=== PATIENT | male | born 1960 | race Caucasian/White ===

== ENCOUNTER 2017-08-09 20:23 | Inpatient (IN) | payer OTHER ==
[~2017-08-09] VITALS: Ht 185.4 cm; Wt 88.0 kg
--- NOTE | ~2017-08-09 | 2DMMODE ---
[facility] [address] [place] [address] 2 D/M-MODE ECHOCARDIOGRAM Name: LARON LIMA Room #: 354-P ADM IN .R.#: [id number] Admission: 08/09/17 Attend Phys: Soren Huang MD Discharge: Date of : 62 Date of Service: 08/11/17 1552 Report #: [id number] THIS REPORT FOR: //name// APPROVED REPORT Study performed: 08/11/2017 14:27:08 EXAM: Comprehensive 2D, Doppler, and color-flow Echocardiogram Patient Location: Bedside Room #: 354 Status: routine BSA: 2.10 HR: 75 bpm BP: 108/63 mmHg Rhythm: NSR Other Information Study Quality: Good Indications Dyspnea Cardiomegaly 2D Dimensions RVDd: 37.17 mm IVSd: 10.99 (7-11mm) LVOT Diam: 22.62 (18-24mm) LVDd: 47.22 mm PWd: 9.63 (7-11mm) Ascending Ao: 31.55 (22-36mm) Aortic Root: 31.11 mm IVC: 22.00 mm Volumes Left Atrial Volume (Systole) Single Plane 4CH: 39.38 mL Single Plane 2CH: 30.10 mL LA ESV Index: 19.00 mL/m2 Aortic Valve AoV Peak Gilbert.: 1.28 m/s AO Peak Gr.: 6.55 mmHg LVOT Max P.67 mmHg LVOT Max V: 1.08 m/s RUFINO Vmax: 3.39 cm2 Mitral Valve E/A Ratio: 0.8 MV Decel. Time: 205.23 ms MV E Max Gilbert.: 0.47 m/s [facility] [address] [place] [address] 2 D/M-MODE ECHOCARDIOGRAM Name: MADDIE SOLORIOLARON A Room #: 354-P [facility] IN [facility].#: [id number] Admission: 08/09/17 Attend Phys: Soren Huang MD Discharge: Date of : 62 Date of Service: 08/11/17 1552 Report #: [id number] A Gilbert.: 0.62 m/s MV PHT: 59.52 ms IVRT: 64.59 ms Pulmonary Valve PV Peak Gilbert.: 0.93 m/s PV Peak Gr.: 3.48 mmHg Tricuspid Valve TR Peak Gilbert.: 2.65 m/s RAP Estimate: 10.00 mmHg TR Peak Gr.: 28.02 mmHg PA Pressure: 38.00 mmHg Left Ventricle The left ventricle is normal size. There is normal left ventricular wall thickness. Left ventricular systolic function is mildly decreased. LVEF is 50%. Grade I - abnormal relaxation pattern. Right Ventricle Right ventricle is at the upper limits of normal. Right ventricle is mildly hypokinetic. Atria The left atrium size is normal. Right atrium is borderline dilated. Aortic Valve The aortic valve is normal in structure. No aortic regurgitation is present. There is no aortic valvular stenosis. Mitral Valve The mitral valve is normal in structure. Mild mitral regurgitation. No evidence of mitral valve stenosis. Tricuspid Valve The tricuspid valve is normal in structure. Mild tricuspid regurgitation. Estimated PAP 38 mmHg. Pulmonic Valve The pulmonary valve is normal in structure. Trace pulmonic regurgitation. Great Vessels The aortic root is normal in size. The ascending aorta is normal in size. IVC is dilated and collapses >50% with inspiration. [facility] [address] [place] [address] 2 D/M-MODE ECHOCARDIOGRAM Name: LARON LIMA Room #: 354-P [facility] IN .R.#: [id number] Admission: 08/09/17 Attend Phys: Soren Huang MD Discharge: Date of : 62 Date of Service: 08/11/17 1552 Report #: [id number] Pericardium There is no pericardial effusion. <Conclusion> The left ventricle is normal size. LVEF is 50%. The aortic valve is normal in structure. The mitral valve is normal in structure. Mild mitral regurgitation. The tricuspid valve is normal in structure. Mild tricuspid regurgitation. Estimated PAP 38 mmHg. The pulmonary valve is normal in structure. Trace pulmonic regurgitation. There is no pericardial effusion. <ELECTRONICALLY SIGNED> By: Sukumar Puri MD 08/11/17 1552 1552 1552 Sukumar Puri MD /INF
--- NOTE | ~2017-08-09 | EKG ---
[place] [address] [facility] [employer] [place] [address] ELECTROCARDIOGRAM REPORT Name: LARON LIMA Room #: 354- ADM IN M.R.#: [id number] Admission: 08/09/17 Attend Phys: Soren Huang MD Discharge: Date of : 62 Report #: [id number] THIS REPORT FOR: //name// [facility] Test Date: 2017-08-11 Test Time: 14:19:45 Pat Name: LARON SOLORIO Department: Room: 354 Gender: M Control Electrician: LU : 1960 Requested By: Pancho Oglesby Order Number: [id number] MD: Reji Davidson Measurements Intervals [place] Rate: 75 P: 59 MT: 179 QRS: -7 QRSD: 95 T: 11 QT: 354 QTc: 396 Interpretive Statements Sinus rhythm Minimal, diffuse ST segment elevation, consider early repolarization, pericarditis, or injury No previous ECG available for comparison Electronically Signed On 08-13-2017 16:29:13 CDT by Reji Davidson [email or web address] <ELECTRONICALLY SIGNED> By: Reji Davidson MD, [facility] 08/13/17 1629 1419 1419 Reji Davidson MD, [facility] /EPI
[2017-08-09 20:29] VITALS: BP 132/68
[2017-08-09 21:07] LABS: HEMATOCRIT 42.8 % (42.0-52.0); HEMOGLOBIN 13.9 gm/dL (14.0-18.0); MCH 25.7 pg (26.0-34.0); MCHC 32.5 g/dL (28.0-37.0); PLATELET COUNT 181 thou/uL (150-400); RBC 5.41 mil/uL (4.50-6.00); RDW 17.5 % (10.5-14.5); WBC 16.1 thou/uL (4.0-11.0)
[2017-08-09 21:17] LABS: CALCIUM 9.3 mg/dL (8.5-10.1); CREATININE 1.5 mg/dL (0.7-1.3); POTASSIUM 3.7 mmol/L (3.5-5.1)
[2017-08-09 21:23] LABS: ALBUMIN 3.1 g/dL (3.4-5.0); TOTAL BILIRUBIN 0.6 mg/dL (<0.1-1.0); TOTAL PROTEIN 8.6 g/dL (6.4-8.2)
[2017-08-09 21:51] LABS: ABSOLUTE NEUTROPHILS 14.8 thou/uL (1.4-8.2); ANISOCYTOSIS 1+
[2017-08-09 23:15] VITALS: BP 110/65
[2017-08-09 23:30] VITALS: BP 120/70
[2017-08-10] VITALS (11 sets, daily range): BP systolic 100–152; BP diastolic 63–90
[2017-08-10 05:17] LABS: HEMATOCRIT 39.1 % (42.0-52.0); HEMOGLOBIN 12.8 gm/dL (14.0-18.0); MCHC 32.7 g/dL (28.0-37.0); MCV 79.5 fL (80.0-100.0); RBC 4.91 mil/uL (4.50-6.00); RDW 17.3 % (10.5-14.5); WBC 10.7 thou/uL (4.0-11.0)
[2017-08-10 05:24] LABS: CALCIUM 8.8 mg/dL (8.5-10.1); CREATININE 1.3 mg/dL (0.7-1.3); POTASSIUM 3.7 mmol/L (3.5-5.1)
[2017-08-10 06:06] LABS: ALBUMIN 2.6 g/dL (3.4-5.0); DIRECT BILIRUBIN 0.3 mg/dL (<0.1-0.3); TOTAL BILIRUBIN 0.7 mg/dL (<0.1-1.0); TOTAL PROTEIN 6.4 g/dL (6.4-8.2)
[2017-08-11 03:15] VITALS: BP 105/55
[2017-08-11 06:13] LABS: CALCIUM 8.9 mg/dL (8.5-10.1); CREATININE 1.4 mg/dL (0.7-1.3); POTASSIUM 3.7 mmol/L (3.5-5.1)
[2017-08-11 07:51] VITALS: BP 96/55
[2017-08-11 11:02] VITALS: BP 108/63
[2017-08-11 15:30] VITALS: BP 143/51
[2017-08-11 15:38] VITALS: BP 111/71
[2017-08-11 19:10] VITALS: BP 101/53
[2017-08-12] VITALS: BP 100/57
[2017-08-12 03:55] VITALS: BP 104/62
[2017-08-12 05:49] LABS: HEMATOCRIT 36.9 % (42.0-52.0); HEMOGLOBIN 12.2 gm/dL (14.0-18.0); MCH 25.8 pg (26.0-34.0); MCHC 33.1 g/dL (28.0-37.0); MCV 78.1 fL (80.0-100.0); RBC 4.73 mil/uL (4.50-6.00); RDW 16.9 % (10.5-14.5); WBC 12.5 thou/uL (4.0-11.0)
[2017-08-12 05:55] LABS: CALCIUM 9.1 mg/dL (8.5-10.1); CREATININE 1.4 mg/dL (0.7-1.3); MAGNESIUM 2.3 mg/dL (1.8-2.4); POTASSIUM 3.3 mmol/L (3.5-5.1)
[2017-08-12 07:35] VITALS: BP 101/61
[2017-08-12 11:23] VITALS: BP 105/63
[2017-08-12 15:17] VITALS: BP 127/77
[2017-08-12 19:40] VITALS: BP 108/70
[2017-08-13 04:00] VITALS: BP 115/79
[2017-08-13 07:01] LABS: HEMATOCRIT 42.6 % (42.0-52.0); HEMOGLOBIN 13.9 gm/dL (14.0-18.0); MCH 25.7 pg (26.0-34.0); MCHC 32.6 g/dL (28.0-37.0); MCV 78.7 fL (80.0-100.0); RBC 5.42 mil/uL (4.50-6.00); RDW 17.4 % (10.5-14.5); WBC 14.8 thou/uL (4.0-11.0)
[2017-08-13 07:11] LABS: CALCIUM 9.7 mg/dL (8.5-10.1); CREATININE 1.2 mg/dL (0.7-1.3); MAGNESIUM 2.4 mg/dL (1.8-2.4); POTASSIUM 3.6 mmol/L (3.5-5.1)
[2017-08-13 08:12] VITALS: BP 119/80
[2017-08-13 11:31] VITALS: BP 118/77
[2017-08-13 15:05] VITALS: BP 115/86
[2017-08-13 19:08] VITALS: BP 111/73
[2017-08-14] VITALS (12 sets, daily range): BP systolic 118–136; BP diastolic 67–88
[2017-08-14 05:30] LABS: CREATININE 1.1 mg/dL (0.7-1.3); MAGNESIUM 2.4 mg/dL (1.8-2.4); POTASSIUM 3.8 mmol/L (3.5-5.1)
[2017-08-14 06:51] LABS: HEMATOCRIT 34.7 % (42.0-52.0); MCH 25.4 pg (26.0-34.0); MCHC 33.1 g/dL (28.0-37.0); MCV 76.7 fL (80.0-100.0); RBC 4.52 mil/uL (4.50-6.00); RDW 17.5 % (10.5-14.5)
[2017-08-14 06:52] LABS: HEMOGLOBIN 11.5 gm/dL (14.0-18.0)
[2017-08-15 04:26] VITALS: BP 124/76
[2017-08-15 07:15] LABS: HEMATOCRIT 34.7 % (42.0-52.0); HEMOGLOBIN 11.4 gm/dL (14.0-18.0); MCH 25.5 pg (26.0-34.0); MCHC 32.7 g/dL (28.0-37.0); MCV 77.8 fL (80.0-100.0); RBC 4.46 mil/uL (4.50-6.00); RDW 17.5 % (10.5-14.5); WBC 12.6 thou/uL (4.0-11.0)
[2017-08-15 07:20] LABS: CALCIUM 9.5 mg/dL (8.5-10.1); CREATININE 1.2 mg/dL (0.7-1.3); MAGNESIUM 2.4 mg/dL (1.8-2.4); POTASSIUM 3.8 mmol/L (3.5-5.1)
[2017-08-15 08:09] VITALS: BP 131/79
[2017-08-15 17:03] VITALS: BP 125/64
[2017-08-16 00:05] VITALS: BP 123/76
[2017-08-16 04:45] VITALS: BP 137/88
[2017-08-16 05:36] LABS: ABSOLUTE NEUTROPHILS 8.3 thou/uL (1.4-8.2); BASOPHILS 0.3 % (0.0-2.0); EOSINOPHILS 1.1 % (0.0-3.0); HEMATOCRIT 34.7 % (42.0-52.0); HEMOGLOBIN 11.2 gm/dL (14.0-18.0); LYMPHOCYTES 18.8 % (24.0-44.0); MCH 25.2 pg (26.0-34.0); MCHC 32.5 g/dL (28.0-37.0); MCV 77.7 fL (80.0-100.0); MONOCYTES 6.8 % (1.0-8.0); PLATELET COUNT 424 thou/uL (150-400); RBC 4.46 mil/uL (4.50-6.00); RDW 17.3 % (10.5-14.5); WBC 11.4 thou/uL (4.0-11.0)
[2017-08-16 05:56] LABS: CALCIUM 9.1 mg/dL (8.5-10.1); CREATININE 1.1 mg/dL (0.7-1.3); POTASSIUM 3.8 mmol/L (3.5-5.1)
[2017-08-16 07:57] VITALS: BP 124/81
[2017-08-16 12:30] VITALS: BP 112/69
[2017-08-16 16:23] VITALS: BP 126/81
[2017-08-16 20:00] VITALS: BP 121/77
[2017-08-17 04:00] VITALS: BP 136/81
[2017-08-17 08:11] VITALS: BP 122/81
[2017-08-17 12:00] VITALS: BP 130/85
[2017-08-17 16:44] VITALS: BP 138/79
[2017-08-17 19:45] VITALS: BP 116/66
[2017-08-18 04:15] VITALS: BP 117/66
[2017-08-18 06:22] LABS: HEMATOCRIT 35.2 % (42.0-52.0); HEMOGLOBIN 11.7 gm/dL (14.0-18.0); MCH 25.6 pg (26.0-34.0); MCHC 33.1 g/dL (28.0-37.0); MCV 77.3 fL (80.0-100.0); RBC 4.55 mil/uL (4.50-6.00); WBC 12.9 thou/uL (4.0-11.0)
[2017-08-18 07:47] VITALS: BP 119/65
[2017-08-18 12:10] VITALS: BP 152/83
[2017-08-18 16:22] VITALS: BP 141/77
[2017-08-18 19:25] VITALS: BP 124/73
[2017-08-19 04:40] VITALS: BP 138/80
[2017-08-19 07:40] VITALS: BP 119/78
[2017-08-19 11:39] VITALS: BP 128/80
[2017-08-19 15:35] VITALS: BP 136/83
[2017-08-19 19:20] VITALS: BP 115/75
[2017-08-20 04:20] VITALS: BP 105/59
[2017-08-20 07:05] VITALS: BP 124/71
[2017-08-20 11:42] VITALS: BP 109/61
[2017-08-20 20:15] VITALS: BP 108/67
[2017-08-21 04:21] LABS: ALBUMIN 2.5 g/dL (3.4-5.0); CALCIUM 9.4 mg/dL (8.5-10.1); CREATININE 1.3 mg/dL (0.7-1.3); POTASSIUM 4.7 mmol/L (3.5-5.1); TOTAL BILIRUBIN 0.2 mg/dL (<0.1-1.0); TOTAL PROTEIN 7.7 g/dL (6.4-8.2)
[2017-08-21 04:23] LABS: ABSOLUTE NEUTROPHILS 8.9 thou/uL (1.4-8.2); BASOPHILS 0.6 % (0.0-2.0); EOSINOPHILS 1.7 % (0.0-3.0); HEMOGLOBIN 12.2 gm/dL (14.0-18.0); MCH 25.8 pg (26.0-34.0); MCHC 32.9 g/dL (28.0-37.0); MCV 78.3 fL (80.0-100.0); MONOCYTES 7.9 % (1.0-8.0); POLYS 75.8 % (36.0-66.0); RBC 4.72 mil/uL (4.50-6.00); RDW 17.6 % (10.5-14.5); WBC 11.8 thou/uL (4.0-11.0)
[2017-08-21 04:26] LABS: PLATELET COUNT 597 thou/uL (150-400)
[2017-08-21 04:35] VITALS: BP 101/61
[2017-08-21 07:42] VITALS: BP 96/54
[2017-08-21 07:45] VITALS: BP 96/54
[2017-08-21 16:30] VITALS: BP 116/63
[2017-08-21 18:10] VITALS: BP 107/67
[2017-08-21 19:47] VITALS: BP 106/64
[2017-08-22 03:52] VITALS: BP 108/70
[2017-08-22 07:38] VITALS: BP 100/48
[2017-08-22 11:15] VITALS: BP 98/48
[2017-08-22] MEDS ORDERED: PEPCID20 MG PO (12:40)
[2017-08-22] MEDS ORDERED: AMOXIL 875 MG875 M1 PO (12:40)
[2017-08-22] MEDS ORDERED: CIPRO500 MG PO (12:40)
[2017-08-22] MEDS ORDERED: MIRALAX17 GM PO (12:40)
[2017-08-22] MEDS ORDERED: SENNA-TIME S T1 EACH PO (12:40)
[2017-08-22] MEDS ORDERED: NORCO 5-325 TA1 EACH PO (12:42)
[2017-08-22] MEDS ORDERED: PROBIOTIC1 EAC1 PO (12:42)
[2017-08-22] MEDS ORDERED: [UNRECOGNIZED DRUG - REMARK] (12:52)
[2017-08-22 12:58] VITALS: BP 98/48
== END 2017-08-22 17:03 | disposition home or self-care (01) | DRG 871 ==
LOC: ER 20:23 → EROBS 22:27 → 3W 22:27 → ENTRNSPT 08-22 16:56 → 3W 08-22 17:03
PROVIDERS: Emergency Medicine; Hospitalist; Internal Medicine; Nurse Practitioner Family; Surgery
PROC: 0F9430Z Drainage of Gallbladder with Drainage Device, Percutaneous Approach (ICD-10-PCS; principal; 2017-08-10)
PROC: 0W9G30Z Drainage of Peritoneal Cavity with Drainage Device, Percutaneous Approach (ICD-10-PCS; 2017-08-14)
DX: A41.9 Sepsis, unspecified organism (principal); J18.9 Pneumonia, unspecified organism; K82.2 Perforation of gallbladder; K81.0 Acute cholecystitis; N17.9 Acute kidney failure, unspecified; J98.11 Atelectasis; Z79.2 Long term (current) use of antibiotics; Z79.899 Other long term (current) drug therapy; B96.20 Unspecified Escherichia coli [E. coli] as the cause of diseases classified elsewhere
CPT/HCPCS: 10879